=== PATIENT | male | born 1975 | race Two or more races ===

== ENCOUNTER 2019-10-12 04:17 | Emergency (ER) | payer MEDICARE, MEDICAID ==
[~2019-10-12] VITALS: Ht 170.2 cm; Wt 73.9 kg
[~2019-10-12 04:17] MED LIST: ACET-868 PO; BENZ1TAB22 PO; BISM525O70 PO; DIAZ10TA PO; DOCU-270 PO; FERR325T24 PO; MAGN296S72 PO; MAGN400O6 PO; MEGE400O PO; MIRT15TA3 PO; POLY17PO4 PO; RISP3TAB5 PO; ZOLP10TA2 PO
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
--- NOTE | 2019-10-12 04:37 | NUR ---
VERONICA FROM [facility], PT ALREADY IS ADMITTED THERE. TO ER BED 11. PT IS AWAKE AND ALERT. PT DOES NOT RESPOND WHEN BEING TALKED TO BUT HE FOLLOWS COMMAND. AMBULATORY. BROUGHT IN FOR GLF. PER REPORT, PT WAS AGGRESSIVE AT THE FACILITY AND SECURITY HAS TO CALLED TO [facility]. PT THEN HAD A GLF. NOTED BLEEDING FROM FACE BUT NOT ACTIVE AT THIS TIME. AWAITING MD FOR EVAL.
--- NOTE | 2019-10-12 05:05 | NUR ---
EMT WAS AT BEDSIDE FOPR WOUND CLEANING. NOTED 3 LACERATION SITE: #1 ON L SIDE BRIDGE OF NOSE 1 CM. #2 ON BRIDGE OF NOSE 0.5CM #3 ON BRIDGE OF NOSE 0.5CM. ALSO NOTED ABBRASION ON THE L UPPER LIP AREA. MADE AWARE
[2019-10-12] MEDS ORDERED: OLANZAPINE 10 MG VIAL IM ONE ×2 (06:28→06:30)
[2019-10-12] MEDS ORDERED: CEFTRIAXONE 1 G VIAL ONE (06:29)
[2019-10-12] MEDS ORDERED: LIDOCAINE /MPF 1% VIAL 5 ML VIAL ONE (06:29)
[2019-10-12] MEDS ORDERED: CEFTRIAXONE 1 G VIAL IM ONE (06:30)
--- NOTE | 2019-10-12 06:56 | NUR ---
SPOKE TO ELIZABETH AT [facility]. INFORMED THAT PATIENT WILL BE SENT TO [facility] IN [place]. PATIENT MOTHER CONCERNED THAT PATIENT WAS TRANSFERRED FROM [facility] TO [facility]. PATIENT FAMILY REQUESTING FASHION CONSULTANT SALES. AWARE OF FASHION CONSULTANT SALES NEED IN AM.
--- NOTE | 2019-10-12 07:25 | NUR ---
REPORT RECEIVED FROM DANDRE TORRES FOR [facility]U
[2019-10-12 07:27] LABS: BASOPHILS % (AUTO) 0.5 % (0.0-2.0); EOSINOPHILS % (AUTO) 0.5 % (0.0-6.0); HEMATOCRIT 38 % (39-51); HEMOGLOBIN 12.4 g/dL (13.5-17.5); LYMPHOCYTES # (AUTO) 1.4 /CMM (0.8-4.8); LYMPHOCYTES % (AUTO) 13.3 % (20.0-44.0); MEAN CORPUSCULAR HGB CONC 33 g/dl (31.0-36.0); MEAN CORPUSCULAR VOLUME 86 fL (80-96); MONOCYTES # (AUTO) 0.6 /CMM (0.1-1.30); MONOCYTES % (AUTO) 5.8 % (2.0-12.0); NEUTROPHILS # (AUTO) 8.2 /CMM (1.8-8.9); NEUTROPHILS % (AUTO) 79.9 % (43.0-81.0); PLATELET COUNT (AUTO) 249 /CMM (150-450); WHITE BLOOD COUNT (AUTO) 10.2 K/uL (4.3-11.0)
[2019-10-12 07:35] LABS: CALCIUM, SERUM 8.7 mg/dL (8.5-10.1); CARBON DIOXIDE 26 mmol/L (21-32); CHLORIDE 107 mmol/L (98-107); CREATININE 0.8 mg/dL (0.6-1.3); GLUCOSE 84 mg/dL (74-106); POTASSIUM 3.5 mmol/L (3.5-5.1); SODIUM SERUM 144 mmol/L (136-145); UREA NITROGEN, BLOOD 18 mg/dL (7-18)
[2019-10-12 07:39] LABS: ACETAMINOPHEN 0 ug/ml (10-30); ALANINE AMINOTRANSFERASE 17 U/L (12-78); ALBUMIN 3.3 g/dL (3.4-5.0); ALCOHOL, BLOOD < 3 mg/dL (0-0); ALKALINE PHOSPHATASE 82 U/L (46-116); ASPARTATE AMINOTRANSFERASE 22 U/L (15-37); BILIRUBIN,DIRECT 0.1 mg/dL (0.0-0.2); BILIRUBIN,TOTAL 0.5 mg/dL (0.2-1.0); SALICYLATE 1.2 mg/dL (2.8-20.0); TOTAL PROTEIN, SERUM 7.7 g/dL (6.4-8.2)
--- NOTE | 2019-10-12 08:47 | NUR ---
CALLED ARRANGING FUNERAL DIRECTOR FOR EVAL.
--- NOTE | 2019-10-12 09:17 | NUR ---
PROVIDED W BREAKFAST TRAY. TOLERATED FOOD WELL.
--- NOTE | 2019-10-12 10:00 | NUR ---
BELLY ROLLER JAY AT BEDSIDE
--- NOTE | 2019-10-12 10:23 | NUR ---
PER AUTOMATIC OVEN OPERATOR JAY, PATIENT WILL GO BACK TO [facility] ([facility]PT: JAD [phone])
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
--- NOTE | 2019-10-12 10:49 | NUR ---
CALLED [facility] FOR TRANSPORT TO [facility] ETA 1200. TRIP NUMBER [id number].
--- NOTE | 2019-10-12 10:59 | NUR ---
CALLED [facility] FOR BLS TRANSPORT TO [facility]. ETA [id number]
--- NOTE | 2019-10-12 11:53 | NUR ---
Patient picked up by [facility] stable condition. Patient will be brought back to [facility]. Mother Amanda Narayan contacted and made aware.
[2019-10-12 11:55] VITALS: BP 112/78
== END 2019-10-12 11:56 ==
LOC: ER 04:17
DX: S02.2XXA Fracture of nasal bones, initial encounter for closed fracture (principal); S00.91XA Abrasion of unspecified part of head, initial encounter; F20.9 Schizophrenia, unspecified; F32.9 Major depressive disorder, single episode, unspecified; Z88.8 Allergy status to other drugs, medicaments and biological substances; Z79.899 Other long term (current) drug therapy; W19.XXXA Unspecified fall, initial encounter; Y93.89 Activity, other specified; Y92.89 Other specified places as the place of occurrence of the external cause; Y99.8 Other external cause status
CPT/HCPCS: 36415; 70450; 70486; 80048; 80076; 80307; 80329; 85025; 96372 ×2; 99285; A6403; G0480; J0696; J3490 ×2

== ENCOUNTER 2019-10-12 12:49 | Emergency (ER) | payer MEDICARE, MEDICAID ==
[~2019-10-12] VITALS: Ht 170.2 cm; Wt 73.9 kg
[~2019-10-12 12:49] MED LIST changes: +MAGN296S44 PO; -MAGN296S72 PO
--- NOTE | 2019-10-12 12:51 | NUR ---
ANDRES DEAL, SEEN EARLIER AND CLEARED FOR PSYCH ADMISSION,WAS REFUSED AT [facility] , TO ER BED 14, HOOKED TO MONITOR, CHANGED TO HOSP GOWN, PROVIDED W WARM BLANKET, PATIENT AOx0 , NOTED W BLUNT AFFECT, BREATHING EVEN AND UNLABORED, AWAITING MD VILLALOBOS.
--- NOTE | 2019-10-12 13:02 | NUR ---
DR HORNE AT BEDSIDE
--- NOTE | 2019-10-12 13:57 | NUR ---
SPOKE TO [facility] FAXED OVER CLINICALS TO [phone]. THWY WILL CALL BACK FOR CONFIRMATION.
--- NOTE | 2019-10-12 16:40 | NUR ---
CALLED ORE DIGGER.
--- NOTE | 2019-10-12 17:23 | NUR ---
CALLED [facility] FOR TRANSPORT. ETA 2000.
--- NOTE | 2019-10-12 17:24 | NUR ---
CALLED ANTONINO AT [facility] AND GAVE INFO FOR NURSE TO NURSE REPORT. NUMBER FOR REPORT EXT. [phone].
[2019-10-12 17:32] LABS: BILIRUBIN,URINE Negative (NEGATIVE); BLOOD, URINE Moderate Ery/uL (NEGATIVE); COLOR,URINE Yellow (YELLOW); KETONES,URINE 15 (NEGATIVE); LEUKOCYTE ESTERASE ,URINE Small (NEGATIVE); NITRITE, URINE Positive (NEGATIVE); PH,URINE 5.5 (5.0-8.0); PROTEIN,URINE Trace mg/dl (NEGATIVE); UGLUCOSE Negative (NEGATIVE); UROBILINOGEN,URINE 0.2 EU/dL (0.2)
[2019-10-12 17:34] LABS: APPEARANCE,URINE SLIGHTLY HAZY (CLEAR)
--- NOTE | 2019-10-12 17:41 | NUR ---
CALLED [facility] FOR TRANSPORT. ETA 1830. TRIP NUMBER [id number].
[2019-10-12 17:50] LABS: BACTERIA,URINE Many /HPF (None Seen); SQUAMOUS EPITHELIAL CELL,UR Many /HPF (None Seen)
[2019-10-12 17:51] LABS: HYALINE CASTS, URINE Rare /LPF (None Seen); WBC,URINE 51-80 /HPF (0-3)
--- NOTE | 2019-10-12 18:14 | NUR ---
REPORT GIVEN TO [facility]
--- NOTE | 2019-10-12 18:47 | NUR ---
TARA DELAYED 1914.
[2019-10-12 19:55] VITALS: BP 128/82
--- NOTE | 2019-10-12 19:55 | NUR ---
REPORT GIVEN. PT TRANSFERED.
== END 2019-10-12 20:20 ==
LOC: ER 12:57
DX: S02.2XXA Fracture of nasal bones, initial encounter for closed fracture (principal); F23 Brief psychotic disorder; N39.0 Urinary tract infection, site not specified; X58.XXXA Exposure to other specified factors, initial encounter; Y93.89 Activity, other specified; Y92.89 Other specified places as the place of occurrence of the external cause; Y99.8 Other external cause status
CPT/HCPCS: 80305; 81000-TC; 87086-TC

== ENCOUNTER 2024-06-22 15:08 | Inpatient (IN) | payer MEDICARE, OTHER ==
[~2024-06-22] VITALS: Ht 182.9 cm; Wt 92.5 kg
[~2024-06-22 15:08] MED LIST changes: -MAGN296S44 PO; +MAGN296S72 PO
[2024-06-22] MEDS ORDERED: POLY15DR17 EACHEYE (16:47)
[2024-06-22] MEDS ORDERED: MAG-5 PO (16:47)
[2024-06-22] MEDS ORDERED: MULT-213 PO (16:47)
[2024-06-22] MEDS ORDERED: RISP4TAB4 PO (16:47)
[2024-06-22] MEDS ORDERED: VALP250S4 PO (16:47)
[2024-06-22] MEDS ORDERED: [UNRECOGNIZED DRUG - CODE] IM (16:47)
[2024-06-22] MEDS ORDERED: HYDR-500 PO (16:47)
[2024-06-22] MEDS ORDERED: CEFTRIAXONE 1GM BAG (ER ONLY) 50 ML IV ONE (17:10)
[2024-06-22 17:11] LABS: APPEARANCE,URINE Clear (CLEAR); BILIRUBIN,URINE Negative (NEGATIVE); BLOOD, URINE Large Ery/uL (NEGATIVE); COLOR,URINE YELLOW (YELLOW); KETONES,URINE Negative (NEGATIVE); LEUKOCYTE ESTERASE ,URINE Moderate (NEGATIVE); NITRITE, URINE Negative (NEGATIVE); PROTEIN,URINE 100 mg/dl (NEGATIVE); UGLUCOSE Negative (NEGATIVE); UROBILINOGEN,URINE 0.2 EU/dL (0.2)
[2024-06-22 17:12] LABS: ADD URINE CULTURE YES; BACTERIA,URINE 1+ /HPF (None Seen); SQUAMOUS EPITHELIAL CELL,UR Rare /HPF (None Seen); WBC,URINE 21-50 /HPF (0-3)
[2024-06-22] MEDS: CEFTRIAXONE 1GM BAG (ER ONLY) 1 GM/50 ML PIGGYBACK IV ONE (17:12)
[2024-06-22 17:16] LABS: BASOPHILS # (AUTO) 0.1 K/uL (0.0-0.2); BASOPHILS % (AUTO) 1.1 % (0.0-2.0); EOSINOPHILS # (AUTO) 0.1 K/uL (0.0-0.7); EOSINOPHILS % (AUTO) 1.8 % (0.0-6.0); HEMATOCRIT 40 % (39-51); HEMOGLOBIN 13.5 g/dL (13.5-17.5); LYMPHOCYTES % (AUTO) 24.4 % (20.0-44.0); MEAN CORPUSCULAR HEMOGLOBIN 29 PG (26.0-33.0); MEAN CORPUSCULAR HGB CONC 34 g/dl (31.0-36.0); MEAN CORPUSCULAR VOLUME 86 fL (80-96); MONOCYTES # (AUTO) 0.5 K/uL (0.1-1.30); MONOCYTES % (AUTO) 6.1 % (2.0-12.0); NEUTROPHILS # (AUTO) 5.4 K/uL (1.8-8.9); NEUTROPHILS % (AUTO) 66.6 % (43.0-81.0); PLATELET COUNT (AUTO) 206 K/uL (150-450); RED BLOOD CELL COUNT(AUTO) 4.68 MIL/uL (4.5-6.0); RED CELL DISTRIBUTION WIDTH 13.6 % (11.5-15.0); WHITE BLOOD COUNT (AUTO) 8.2 K/uL (4.3-11.0)
[2024-06-22 17:23] LABS: CALCIUM, SERUM 8.8 mg/dL (8.5-10.1); CREATININE 0.9 mg/dL (0.6-1.3); POTASSIUM 3.8 mmol/L (3.5-5.1)
[2024-06-22] MEDS ORDERED: MORPHINE SULFATE INJ 2 MG/ML DISP.SYRIN IV PRN (17:30)
[2024-06-22] MEDS ORDERED: CEFTRIAXONE 1 G in IV D5W 50 ML IV SCH (18:00)
[2024-06-22 20:00] VITALS: BP 111/64; TEMP 98.5; O2SAT 97
[2024-06-22] MEDS ORDERED: HEPARIN SODIUM, PORCINE 5000 UNITS/1 ML VIAL SQ SCH (21:00)
[2024-06-22] MEDS: HEPARIN SODIUM, PORCINE 5000 UNITS/1 ML VIAL SQ SCH (21:24)
[2024-06-22] MEDS: ONDANSETRON HCL/PF 4 MG/2 ML VIAL IVP PRN (22:39)
[2024-06-22] MEDS: ACETAMINOPHEN 325 MG TABLET PO PRN (22:46)
[2024-06-23 06:42] LABS: BASOPHILS # (AUTO) 0.1 K/uL (0.0-0.2); EOSINOPHILS # (AUTO) 0.2 K/uL (0.0-0.7); EOSINOPHILS % (AUTO) 2.8 % (0.0-6.0); HEMATOCRIT 39 % (39-51); HEMOGLOBIN 13.3 g/dL (13.5-17.5); LYMPHOCYTES # (AUTO) 2.5 K/uL (0.8-4.8); LYMPHOCYTES % (AUTO) 30.8 % (20.0-44.0); MEAN CORPUSCULAR HEMOGLOBIN 30 PG (26.0-33.0); MEAN CORPUSCULAR HGB CONC 34 g/dl (31.0-36.0); MEAN CORPUSCULAR VOLUME 87 fL (80-96); MONOCYTES # (AUTO) 0.7 K/uL (0.1-1.30); MONOCYTES % (AUTO) 8.3 % (2.0-12.0); NEUTROPHILS # (AUTO) 4.6 K/uL (1.8-8.9); NEUTROPHILS % (AUTO) 57.1 % (43.0-81.0); PLATELET COUNT (AUTO) 205 K/uL (150-450); RED CELL DISTRIBUTION WIDTH 13.7 % (11.5-15.0)
[2024-06-23 06:46] LABS: CALCIUM, SERUM 9.3 mg/dL (8.5-10.1); POTASSIUM 3.6 mmol/L (3.5-5.1)
[2024-06-23] MEDS ORDERED: LORAZEPAM INJ 2 MG/ML VIAL IV PRN (08:00)
[2024-06-23] MEDS: VALPROIC ACID 250 MG/5 ML UDC PO SCH (09:00)
[2024-06-23] MEDS: BENZTROPINE MESYLATE (1 MG) 1 MG TABLET PO SCH (09:29)
[2024-06-23] MEDS: risperiDONE 1 MG TABLET PO SCH (09:29)
[2024-06-23] MEDS: ENSURE ENLIVE CHOC 237 ML CAN PO SCH (17:45)
[2024-06-23] MEDS: CEFTRIAXONE 1 G in IV D5W 50 ML IV SCH (18:43)
[2024-06-23 20:00] VITALS: BP 109/70; TEMP 98.1; O2SAT 96; O2SAT 98
[2024-06-24 08:00] VITALS: BP 107/71; TEMP 98.4; O2SAT 98
[2024-06-24] MEDS ORDERED: LORAZEPAM INJ 2 MG/ML VIAL IM PRN (11:00)
[2024-06-24] MEDS: LORAZEPAM 0.5 MG TABLET PO PRN (13:01)
[2024-06-24 16:00] VITALS: BP 108/74; TEMP 98.2; O2SAT 99
[2024-06-24] MEDS: DIVALPROEX SODIUM 500 MG TABLET.DR PO SCH (16:57)
[2024-06-24 20:00] VITALS: BP 110/82; TEMP 98.2; O2SAT 95; O2SAT 98
[2024-06-25 08:30] VITALS: BP 107/76; TEMP 97.7; O2SAT 97
[2024-06-25] MEDS ORDERED: NITR100C6 PO (09:22)
[2024-06-25] MEDS ORDERED: DIVA500T2 PO (09:22)
[2024-06-25 19:52] VITALS: BP 123/79; TEMP 97.9; O2SAT 94
[2024-06-26 20:00] VITALS: BP 106/74; TEMP 98.2; O2SAT 95
== END 2024-06-27 16:33 | DRG 690 ==
LOC: ER 15:19 → MED 18:53
PROVIDERS: ADMIT Internal Medicine
DX: N39.0 Urinary tract infection, site not specified (principal); R62.7 Adult failure to thrive; F25.9 Schizoaffective disorder, unspecified; B95.7 Other staphylococcus as the cause of diseases classified elsewhere; Z68.27 Body mass index [BMI] 27.0-27.9, adult
CPT/HCPCS: 36415; 80048-TC; 81001; 84484-TC; 85025-TC; 87086-TC; 97110-TC; 97116-TC; A4223; G0378; J0696; J1644; J2405; J7050; J7060